=== PATIENT | female | born 1995 | race Caucasian/White ===

== ENCOUNTER 2018-11-08 10:04 | Outpatient (CLI) | payer OTHER ==
[~2018-11-08] VITALS: Ht 157.5 cm; Wt 52.8 kg
[2018-11-08] MEDS ORDERED: ZYRTEC 10MG10 MG PO (10:43)
[2018-11-08] MEDS ORDERED: EXCEDRIN TENSIO1 CAP PO (10:45)
[2018-11-08] MEDS ORDERED: [UNRECOGNIZED DRUG - OTHER] (10:46)
--- NOTE | 2018-11-08 12:30 | NUR ---
PT RETURNED TO [facility] 10 VIA W/C FROM TILT TABLE. 96/59 98%, PULSE 72, RR AT 16, PT HAS NO C/O. RESTS IN BED
--- NOTE | 2018-11-08 13:15 | NUR ---
DISCHARGE INST. GIVEN TO PT AND NEXT APPT, IV D'CD INTACT. PT UP IN ROOM DRESSED, DISCHARGED VIA AMBULATION
== END 2018-11-08 13:15 | disposition home or self-care (01) ==
LOC: COL.CAR 10:04
DX: R55 Syncope and collapse (principal); F17.200 Nicotine dependence, unspecified, uncomplicated; Z79.82 Long term (current) use of aspirin